=== PATIENT | female | born 1955 | race Two or more races ===

== ENCOUNTER 2018-09-03 13:47 | Emergency (ER) | payer MEDICAID, SELFPAY ==
[~2018-09-03] VITALS: Ht 162.6 cm; Wt 63.5 kg
[~2018-09-03 13:47] MED LIST: FOLIC ACID1 MG ORAL; IRON55 M1 PO; NAPROXEN375 M2 ORAL; OMEPRAZOLE5 GM MC; PLAQUENIL200 MG ORAL; PREDNISOLO15 MG/5 M1 ORAL; SULFASALAZINE500 MG ORAL; TRAMADOL HCL50 MG ORAL
[2018-09-03] MEDS ORDERED: CYCLOBENZAPRINE10 MG ORAL (13:52)
[2018-09-03] MEDS ORDERED: LYRICA20 MG/1 ML ORAL (13:52)
[2018-09-03] MEDS ORDERED: LIPITOR80 MG ORAL (13:52)
[2018-09-03] MEDS ORDERED: AMITRIPTYLINE H50 MG ORAL (13:52)
[2018-09-03] MEDS ORDERED: EVOXAC30 MG PO (13:52)
[2018-09-03] MEDS ORDERED: TYLENOL EXTRA500 MG ORAL (13:52)
[2018-09-03] MEDS ORDERED: AZULFIDINE500 MG PO (13:52)
[2018-09-03] MEDS ORDERED: METHOTREXATE2.5 MG PO (13:52)
--- NOTE | 2018-09-03 13:54 | NUR ---
ED Nurse Note: Pt B[facility] from [facility]/ complaints of generalized weakness since yesterday afternoon. Pt is A + O x4. Skinw arm to touch. Hx of lupus and HTN. Pt denies pain. Yoruba speaking.
[2018-09-03 13:55] VITALS: BP 168/87
--- NOTE | 2018-09-03 13:55 | Emergency Room Report ---
History of Present Illness General Chief Complaint: Generalized Weakness Source: Patient, Friend Present Illness HPI Patient is a 63-year-old female presented after increased generalized weakness. Patient reports having increased vertigo sensation associated with nausea and vomiting. Patient had prior history of lupus. She reports having multiple episodes of vomiting as well as increased dizziness over the past few days. She reports having increased dizziness with head movements. She denies any ringing of ears. Allergies: Coded Allergies: No Known Allergies (Unverified , 09/03/13) Patient History Reviewed Nursing Documentation: PMH: Agreed; PSxH: Agreed Nursing Documentation-PMH Past Medical History: No History, Except For Hx Hypertension: Yes Review of Systems All Other Systems: negative except mentioned in HPI Physical Exam Vital Signs Date Time Temp Pulse Resp B/P (MAP) Pulse Ox O2 Delivery O2 Flow Rate FiO2 09/03/18 13:42 97.7 90 18 136/86 96 Room Air Sp02 EP Interpretation: reviewed, normal General Appearance: normal inspection, alert, Chronically Ill Head: atraumatic ENT: normal ENT inspection, hearing grossly normal, normal voice Neck: normal inspection, full range of motion, supple, no bony tend Respiratory: normal inspection, lungs clear, normal breath sounds, no respiratory distress, no retraction, no wheezing Cardiovascular #1: regular rate, rhythm, no edema Gastrointestinal: normal inspection, normal bowel sounds, non tender, soft, no guarding, no hernia Genitourinary: no CVA tenderness Musculoskeletal: normal inspection, back normal, normal range of motion Neurologic: normal inspection, alert, responsive, speech normal Psychiatric: normal inspection, judgement/insight normal, mood/affect normal Skin: normal inspection, normal color, no rash Medical Decision Making Diagnostic Impression: Primary Impression: Vertigo ER Course Patient presented for dizziness. Differential diagnosis included but not limited to urinary tract infection, anemia, arrhythmia, abdominal aortic aneurysm, CVA, subarachnoid hemorrhage, benign positional vertigo. Because of complexity of patient's case laboratory testing and imaging studies were ordered. Laboratory studies were unremarkable. Patient was given Zofran as well as meclizine. Patient is noted to have improvement in her dizziness. Patient sed rate was noted to be normal. Patient was offered admission which she declined. The patient is advised to follow up with primary care doctor in 1-2 days. Patient is advised to return if any worsening condition or if any changes in status that are concerning. This report is dictated with [employer] veneer grader software which may occasionally lead to discrepancies related to use of this software. Last Vital Signs Date Time Temp Pulse Resp B/P (MAP) Pulse Ox O2 Delivery O2 Flow Rate FiO2 09/03/18 13:42 97.7 90 18 136/86 96 Room Air Status: improved Disposition: HOME, SELF-CARE Condition: Stable Scripts Meclizine Hcl* (MECLIZINE*) 25 Mg Tablet 25 MG ORAL THREE TIMES A DAY, #20 TAB Prov: Milton Ojeda MD 09/03/18 Milton Ojeda MD Sep 03, 2018 13:54
[2018-09-03] MEDS ORDERED: Meclizine 25mg tab ORAL ONE (14:00)
[2018-09-03 14:29] LABS: BASOPHILS % (AUTO) 1.1 % (0.0-2.0); EOSINOPHILS % (AUTO) 0.4 % (0.0-3.0); HEMATOCRIT 45.1 % (37.0-47.0); HEMOGLOBIN 14.9 G/DL (12.0-16.0); LYMPHOCYTES % (AUTO) 39.9 % (20.0-45.0); MEAN CORPUSCULAR VOLUME 89 FL (80-99); MONOCYTES % (AUTO) 7.7 % (1.0-10.0); NEUTROPHILS % (AUTO) 50.9 % (45.0-75.0); PLATELET COUNT 280 K/UL (150-450); RED BLOOD COUNT 5.06 M/UL (4.20-5.40); RED CELL DISTRIBUTION WIDTH 12.5 % (11.6-14.8); WHITE BLOOD COUNT 9.4 K/UL (4.8-10.8)
[2018-09-03 14:35] LABS: APPEARANCE,URINE CLEAR; BILIRUBIN, URINE NEGATIVE (NEGATIVE); COLOR,URINE PALE YELLOW; GLUCOSE, URINE (UA) NEGATIVE (NEGATIVE); KETONES,URINE NEGATIVE (NEGATIVE); LEUKOCYTE ESTERASE ,URINE 1+ (NEGATIVE); NITRITE,URINE NEGATIVE (NEGATIVE); PH,URINE 6 (4.5-8.0); PROTEIN,URINE 1+ (NEGATIVE); UROBILINOGEN,URINE NORMAL MG/DL (0.0-1.0)
[2018-09-03 14:37] LABS: ANION GAP 11 mmol/L (5-15); BLOOD UREA NITROGEN 11 mg/dL (7-18); CALCIUM 9.5 MG/DL (8.5-10.1); CARBON DIOXIDE 23 MMOL/L (21-32); CHLORIDE 102 MMOL/L (98-107); CREATININE 0.8 MG/DL (0.55-1.30); POTASSIUM 3.5 MMOL/L (3.5-5.1); SODIUM 136 MMOL/L (136-145)
[2018-09-03 14:42] LABS: ALANINE AMINOTRANSFERASE 26 U/L (12-78); ALBUMIN/GLOBULIN RATIO 0.9 (1.0-2.7); ALKALINE PHOSPHATASE 98 U/L (46-116); ASPARTATE AMINO TRANSFERASE 29 U/L (15-37); BILIRUBIN,TOTAL 0.9 MG/DL (0.2-1.0)
[2018-09-03 15:45] VITALS: BP 126/73
--- NOTE | 2018-09-03 16:50 | NUR ---
ED Nurse Note: Pt asleep comfortably in bed.
--- NOTE | 2018-09-03 17:17 | NUR ---
ED Nurse Note: MD gave orders to PO challenge pt. Pt given water and was able to tolerate it. No vomiting or nausea. Will cont to monitor.
[2018-09-03] MEDS ORDERED: MECLIZINE HCL25 MG ORAL (17:24)
--- NOTE | 2018-09-03 17:35 | NUR ---
ED Nurse Note: Pt walked from bed 2 to bathroom w/ steady gait.
[2018-09-03 17:36] VITALS: BP 127/78
--- NOTE | 2018-09-03 17:37 | NUR ---
ED Nurse Note: Discharge instructions given to pt. Answered all questions. Verbalized understanding. No acute distress noted. ID band and IVsite removed. Left ER w/ all belongings and w/ a steady gait.
--- NOTE | 2018-09-04 18:04 | Cardiology Report ---
APPROVED REPORT EKG Measurement Heart [id number] NC [id number] Normal sinus rhythm Low voltage QRS Nonspecific T wave abnormality Abnormal ECG
== END 2018-09-03 17:38 | disposition home or self-care (01) ==
LOC: EDBD 13:47 → EMR 14:38
DX: R42 Dizziness and giddiness (principal); R53.1 Weakness; I10 Essential (primary) hypertension
CPT/HCPCS: 36415; 80053; 81001; 85025; 85651; 93005; 96374; 99284; J2405